=== PATIENT | male | born 1995 | race Caucasian/White ===

== ENCOUNTER → 2020-04-29 | Emergency (ER) | payer OTHER ==
[~2020-04-29] VITALS: Ht 175.3 cm; Wt 79.4 kg
== END | disposition home or self-care (01) ==
LOC: ER 23:13
DX: R00.2 Palpitations (principal)

== ENCOUNTER 2022-09-16 18:10 | Emergency (ER) | payer OTHER ==
[~2022-09-16] VITALS: Ht 175.3 cm; Wt 89.8 kg
[2022-09-16] MEDS ORDERED: ADVIL DUAL ACT1 EACH PO (21:59)
[2022-09-16] MEDS ORDERED: METAXALONE800 MG PO (21:59)
== END 2022-09-16 22:06 | disposition home or self-care (01) ==
LOC: ER 18:10
DX: M54.2 Cervicalgia (principal); Z91.048 Other nonmedicinal substance allergy status

== ENCOUNTER 2022-12-31 13:47 | Emergency (ER) | payer OTHER ==
[~2022-12-31] VITALS: Ht 175.3 cm; Wt 93.0 kg
[~2022-12-31 13:47] MED LIST: ADVIL DUAL ACT1 EACH PO; METAXALONE800 MG PO
== END 2022-12-31 21:15 | disposition home or self-care (01) ==
LOC: ER 13:47
DX: M54.2 Cervicalgia (principal)

== ENCOUNTER 2023-01-04 07:06 | Emergency (ER) | payer OTHER ==
[~2023-01-04] VITALS: Ht 175.3 cm; Wt 93.0 kg
[2023-01-04] MEDS ORDERED: NORFLEX100MG PO (08:25)
[2023-01-04] MEDS ORDERED: DICLOFENAC SODI75 MG PO (08:25)
== END 2023-01-04 08:53 | disposition home or self-care (01) ==
LOC: ER 07:06
DX: M54.2 Cervicalgia (principal)